=== PATIENT | female | born 1945 | race Caucasian/White ===

== ENCOUNTER 2016-04-03 14:30 | Outpatient (CLI) | payer SELFPAY | END 2016-04-03 14:31 | disposition home or self-care (01) | DX: Z76.89 Persons encountering health services in other specified circumstances (principal) ==

== ENCOUNTER 2016-05-11 14:48 | Outpatient (CLI) | payer MEDICARE ==
[2016-05-11] MEDS ORDERED: IOPAMIDOL-300 100 ML VIAL IVP ONE (17:31)
[2016-05-11] MEDS ORDERED: IOPAMIDOL-300 50 ML VIAL PO ONE (17:31)
== END 2016-05-11 14:49 | disposition home or self-care (01) ==
DX: C34.31 Malignant neoplasm of lower lobe, right bronchus or lung (principal); Z90.49 Acquired absence of other specified parts of digestive tract
CPT/HCPCS: 36415; 71260; 74177; 82565; Q9967

== ENCOUNTER 2016-05-25 06:24 | Inpatient (IN) | payer MEDICARE ==
[2016-05-25] MEDS ORDERED: LACTATED RINGERS 1,000 ML IV ONE ×3 (06:57→12:20)
[2016-05-25] MEDS ORDERED: SCOPOLAMINE PATCH TOP ONE (07:29)
[2016-05-25] MEDS ORDERED: GLYCOPYRROLATE 1 MG/5 ML VIAL IVP ONE (08:30)
[2016-05-25] MEDS ORDERED: fentaNYL 100 MCG/2 ML VIAL IVP ONE (08:30)
[2016-05-25] MEDS ORDERED: ROCURONIUM 50 MG/5 ML VIAL IVP ONE (08:30)
[2016-05-25] MEDS ORDERED: PROPOFOL 200 MG/20 ML VIAL IVP ONE (08:30)
[2016-05-25] MEDS ORDERED: LIDOCAINE-MPF 2% 5 ML VIAL IM ONE (08:30)
[2016-05-25] MEDS ORDERED: NEOSTIGMINE 1 MG/1 ML 10 ML MDV IVP ONE (08:30)
[2016-05-25] MEDS ORDERED: ONDANSETRON 4 MG/2 ML VIAL IVP ONE (08:30)
[2016-05-25] MEDS ORDERED: DEXAMETHASONE 4 MG/ML VIAL IVP ONE (08:30)
[2016-05-25] MEDS ORDERED: ACETAMINOPHEN 1,000 MG/100 ML VIAL IV ONE (08:30)
[2016-05-25] MEDS ORDERED: MIDAZOLAM 2 MG/2 ML VIAL IVP ONE (08:30)
[2016-05-25] MEDS ORDERED: SUCCINYLCHOLINE 200 MG/10 ML VIAL IVP ONE (08:30)
[2016-05-25] MEDS ORDERED: SODIUM CHLORIDE FLUSH 0.9% 10 ML SYRINGE IVP PRN (11:53)
[2016-05-25] MEDS ORDERED: ACETAMINOPHEN 1,000 MG/100 ML 100 ML IV PRN (11:53)
[2016-05-25] MEDS ORDERED: FORMOTEROL FUMARATE NEB 20 MCG/2 ML INH SCH ×3 (12:00→19:00)
[2016-05-25] MEDS ORDERED: LACTATED RINGERS 1,000 ML IV SCH (12:00)
[2016-05-25] MEDS ORDERED: ALBUTEROL NEB 2.5 MG/3 ML INH PRN (12:09)
[2016-05-25] MEDS ORDERED: diphenhydrAMINE INJ 50 MG/ML VIAL IVP PRN (12:12)
[2016-05-25] MEDS ORDERED: ONDANSETRON 4 MG/2 ML VIAL IVP PRN ×2 (12:12→21:18)
[2016-05-25] MEDS ORDERED: NALBUPHINE 20 MG/ML AMP IVP PRN ×3 (12:12→21:18)
[2016-05-25] MEDS ORDERED: SUFENTA/BUPIV 0.4 MCG/0.0625% 150 ML EP PRN ×2 (12:12→21:11)
[2016-05-25] MEDS ORDERED: diphenhydrAMINE INJ 50 MG/ML VIAL IV PRN ×2 (12:17→21:18)
[2016-05-25] MEDS: ePHEDrine 50 MG/ML VIAL IVP ONE ×3 (12:20→12:57)
[2016-05-25] MEDS ORDERED: SUFENTA/BUPIV 0.4 MCG/0.0625% 150 ML EP ONE (14:45)
[2016-05-25] MEDS: SUFENTA/BUPIV 0.4 MCG/0.0625% 150 ML EP PRN ×4 (15:19→20:18)
[2016-05-25] MEDS: ONDANSETRON 4 MG/2 ML VIAL IVP PRN (15:26)
[2016-05-25] MEDS: IPRATROPIUM/ALBUTEROL 3 ML NEB INH SCH ×2 (15:27→18:56)
[2016-05-25] MEDS: POTASSIUM CHLORIDE INJ 40 MEQ in SODIUM CHLORIDE 0.9% 1,000 ML IV SCH (17:19)
[2016-05-25] MEDS: SODIUM CHLORIDE FLUSH 0.9% 10 ML SYRINGE IVP SCH ×2 (17:22→22:23)
[2016-05-25] MEDS ORDERED: BUDESONIDE 0.5 MG/2 ML NEB INH SCH (19:00)
[2016-05-25] MEDS ORDERED: INSULIN ASPART 300 UNIT/3 ML PEN SUBQ STA (20:48)
[2016-05-25] MEDS ORDERED: ePHEDrine 50 MG/ML AMP IVP PRN (21:14)
[2016-05-25] MEDS ORDERED: METOCLOPRAMIDE 10 MG/2 ML VIAL IVP PRN (21:18)
[2016-05-26] MEDS ORDERED: FAMOTIDINE 20 MG in SODIUM CHLORIDE 0.9% 50 ML IV STA (02:21)
[2016-05-26] MEDS ORDERED: FAMOTIDINE 20 MG/50 ML 50 ML IV ONE (02:52)
[2016-05-26] MEDS: POTASSIUM CHLORIDE INJ 40 MEQ in SODIUM CHLORIDE 0.9% 1,000 ML IV SCH ×2 (02:53→14:09)
[2016-05-26] MEDS: PANTOPRAZOLE 40 MG VIAL IVP SCH (06:40)
[2016-05-26] MEDS: SODIUM CHLORIDE FLUSH 0.9% 10 ML SYRINGE IVP SCH ×3 (06:40→21:27)
[2016-05-26] MEDS ORDERED: DEXTROSE 5% 1,000 ML IV PRN (07:48)
[2016-05-26] MEDS ORDERED: DEXTROSE GEL 37.5 GM TUBE PO PRN (07:48)
[2016-05-26] MEDS ORDERED: GLUCAGON 1 MG/ML VIAL SUBQ PRN (07:48)
[2016-05-26] MEDS ORDERED: DEXTROSE 50% ABBOJECT 25 GM/50 ML SYRINGE IVP PRN (07:48)
[2016-05-26] MEDS: diltiaZEM CD 120 MG CAPSULE PO SCH (09:17)
[2016-05-26] MEDS: IPRATROPIUM/ALBUTEROL 3 ML NEB INH SCH ×4 (09:40→20:50)
[2016-05-26] MEDS: DOCUSATE SODIUM 100 MG CAPSULE PO SCH ×2 (14:22→21:26)
[2016-05-26] MEDS ORDERED: ACETAMINOPHEN 325 MG TABLET PO PRN (14:57)
[2016-05-26] MEDS: ONDANSETRON 4 MG/2 ML VIAL IVP PRN (15:15)
[2016-05-26] MEDS: D5.45NS W/20 MEQ KCL 1,000 ML IV SCH (19:43)
[2016-05-27] MEDS: HYDROmorphone 1 MG/ML SYRINGE IVP PRN ×7 (06:14→23:57)
[2016-05-27] MEDS: PANTOPRAZOLE 40 MG VIAL IVP SCH (06:19)
[2016-05-27] MEDS: DOCUSATE SODIUM 100 MG CAPSULE PO SCH ×3 (06:20→21:20)
[2016-05-27] MEDS: IPRATROPIUM/ALBUTEROL 3 ML NEB INH SCH ×4 (06:20→18:24)
[2016-05-27] MEDS: SODIUM CHLORIDE FLUSH 0.9% 10 ML SYRINGE IVP SCH ×3 (07:01→21:21)
[2016-05-27] MEDS: D5.45NS W/20 MEQ KCL 1,000 ML IV SCH ×2 (08:55→21:20)
[2016-05-27] MEDS: diltiaZEM CD 120 MG CAPSULE PO SCH (09:15)
[2016-05-27] MEDS ORDERED: LORazepam 2 MG/ML SYRINGE IVP PRN (11:56)
[2016-05-27] MEDS ORDERED: ALBUTEROL NEB 2.5 MG/3 ML INH PRN (11:58)
[2016-05-27] MEDS ORDERED: IPRATROPIUM/ALBUTEROL 3 ML NEB INH SCH (14:00)
[2016-05-27] MEDS: BUDESONIDE 0.5 MG/2 ML NEB INH SCH (18:24)
[2016-05-28] MEDS: HYDROmorphone 1 MG/ML SYRINGE IVP PRN ×3 (02:57→08:14)
[2016-05-28] MEDS: PANTOPRAZOLE 40 MG VIAL IVP SCH (06:04)
[2016-05-28] MEDS: DOCUSATE SODIUM 100 MG CAPSULE PO SCH ×3 (06:04→23:03)
[2016-05-28] MEDS: SODIUM CHLORIDE FLUSH 0.9% 10 ML SYRINGE IVP SCH ×3 (06:05→23:10)
[2016-05-28] MEDS: BUDESONIDE 0.5 MG/2 ML NEB INH SCH ×2 (07:25→16:51)
[2016-05-28] MEDS: IPRATROPIUM/ALBUTEROL 3 ML NEB INH SCH ×4 (07:26→17:17)
[2016-05-28] MEDS: diltiaZEM CD 120 MG CAPSULE PO SCH (08:16)
[2016-05-28] MEDS: D5.45NS W/20 MEQ KCL 1,000 ML IV SCH ×2 (08:17→23:03)
[2016-05-28] MEDS: oxyCOD/ACETAMIN 5 MG/325 MG TABLET PO PRN ×4 (09:41→23:02)
[2016-05-28] MEDS ORDERED: DEXTROSE 5% 1,000 ML IV PRN (09:46)
[2016-05-28] MEDS ORDERED: DEXTROSE 50% ABBOJECT 25 GM/50 ML SYRINGE IVP PRN (09:46)
[2016-05-28] MEDS ORDERED: DEXTROSE GEL 37.5 GM TUBE PO PRN (09:46)
[2016-05-28] MEDS ORDERED: GLUCAGON 1 MG/ML VIAL SUBQ PRN (09:46)
[2016-05-29] MEDS: oxyCOD/ACETAMIN 5 MG/325 MG TABLET PO PRN ×2 (04:12→08:55)
[2016-05-29] MEDS: SODIUM CHLORIDE FLUSH 0.9% 10 ML SYRINGE IVP SCH ×2 (06:36→09:00)
[2016-05-29] MEDS: PANTOPRAZOLE 40 MG VIAL IVP SCH (06:36)
[2016-05-29] MEDS: DOCUSATE SODIUM 100 MG CAPSULE PO SCH ×2 (06:36→08:54)
[2016-05-29] MEDS: diltiaZEM CD 120 MG CAPSULE PO SCH (08:54)
[2016-05-29] MEDS: BUDESONIDE 0.5 MG/2 ML NEB INH SCH (09:25)
[2016-05-29] MEDS: IPRATROPIUM/ALBUTEROL 3 ML NEB INH SCH (09:25)
== END 2016-05-29 11:30 | disposition home or self-care (01) | DRG 330 ==
PROC: 0DBF4ZZ Excision of Right Large Intestine, Percutaneous Endoscopic Approach (ICD-10-PCS; principal; 2016-05-25 07:30)
DX: C78.5 Secondary malignant neoplasm of large intestine and rectum (principal); C34.31 Malignant neoplasm of lower lobe, right bronchus or lung; I95.81 Postprocedural hypotension; J44.9 Chronic obstructive pulmonary disease, unspecified; F17.210 Nicotine dependence, cigarettes, uncomplicated; I48.91 Unspecified atrial fibrillation; F32.9 Major depressive disorder, single episode, unspecified; F41.0 Panic disorder [episodic paroxysmal anxiety]; F40.240 Claustrophobia; Y83.8 Other surgical procedures as the cause of abnormal reaction of the patient, or of later complication, without mention of misadventure at the time of the procedure; Z99.81 Dependence on supplemental oxygen; Z92.3 Personal history of irradiation; Z87.11 Personal history of peptic ulcer disease; Z79.84 Long term (current) use of oral hypoglycemic drugs; Z79.51 Long term (current) use of inhaled steroids; Z79.899 Other long term (current) drug therapy; Z90.49 Acquired absence of other specified parts of digestive tract

== ENCOUNTER 2016-10-24 13:06 | Outpatient (CLI) | payer MEDICARE ==
--- NOTE | 2016-10-25 09:36 | CT Preliminary Report ---
Exam: CT Chest W/O IMPRESSION: 1. Significantly improved aeration with reexpansion of the right lower lobe. Minimal residual atelect atic changes persist in the posterior medial aspect of the right lower lobe. 2. A central obstructing mass in the right hilum cannot be entirely excluded on this examination but no definite mass is identified. 3. No lymphadenopathy. 4. Masslike density in the lateral aspect of the left breast is redemonstrated and similar to the elver or examination. Correlation with breast imaging is again recommended. [facility] SITE ID: [id number]
--- NOTE | 2016-10-25 09:39 | CT Report ---
EXAM: CT CHEST EXAM DATE: 10/24/2016 02:44 PM. CLINICAL HISTORY: MALIGNANT NEOPLASM OF LOWER LOBE RIGHT BRONCHUS. COMPARISONS: Chest CT dated 10/30/2015. TECHNIQUE: Routine helical CT imaging was performed through the chest. IV contrast: None. Reconstruct ions: Coronal and sagittal. In accordance with CT protocol optimization, one or more of the following dose reduction techniques w ere utilized for this exam: automated exposure control, adjustment of mA and/or KV based on patient s ize, or use of iterative reconstructive technique. FINDINGS: Lungs/Pleura: Significantly improved aeration in the right lung base with minimal residual atelectati c changes posterior medially (series 4, image 30). The presence of an obstructing central mass cannot be entirely excluded within the hilum but no definite mass is identified. No new focal consolidation , pleural effusion or suspicious pulmonary nodules or masses. Mediastinum: Normal. No adenopathy or masses. The heart and great vessels are normal. Bones: Unremarkable. Visualized Abdomen: Unremarkable. Other: Masslike density in the lateral aspect of the left breast is redemonstrated and similar. IMPRESSION: 1. Significantly improved aeration with reexpansion of the right lower lobe. Minimal residual atelect atic changes persist in the posterior medial aspect of the right lower lobe. 2. A central obstructing mass in the right hilum cannot be entirely excluded on this examination but no definite mass is identified. 3. No lymphadenopathy. 4. Masslike density in the lateral aspect of the left breast is redemonstrated and similar to the elver or examination. Correlation with breast imaging is again recommended. [facility] Referring Provider Line: [phone] SITE ID: [id number]
== END 2016-10-24 13:07 | disposition home or self-care (01) ==
LOC: DI 13:06
PROVIDERS: ATTEND Specialist
DX: R91.8 Other nonspecific abnormal finding of lung field (principal)
CPT/HCPCS: 71250

== ENCOUNTER 2016-12-30 07:40 | Observation (INO) | payer MEDICARE ==
[2016-12-30] MEDS ORDERED: IPRATROPIUM/ALBUTEROL 3 ML NEB INH STA ×2 (07:47→10:31)
[2016-12-30] MEDS ORDERED: SODIUM CHLORIDE 0.9% 1,000 ML IV ONE (07:56)
[2016-12-30] MEDS ORDERED: cefTRIAXone 1 GM in SODIUM CHLORIDE 0.9% MINIBAG 100 ML IV STA (07:56)
[2016-12-30] MEDS ORDERED: DEXAMETHASONE 10 MG/ML VIAL IVP STA (07:56)
--- NOTE | 2016-12-30 08:01 | ED Physician Documentation ---
PD HPI DYSPNEA - Stated complaint Stated Complaint: DIFF BREATHING/COLD - Chief complaint Chief Complaint: Resp - History obtained from History obtained from: Patient - History of Present Illness Timing - onset: How many days ago (3) Timing - onset during: Rest Timing - duration: Days (3) Timing - details: Gradual onset, Still present Inciting event(s): URI Improved by: Inhaler/neb Worsened by: Exertion, Coughing Associated symptoms: Cough, Wheezing Similar symptoms before: Diagnosis (COPD) Recently seen: Other (getting routine care for lung and colon cancer.) - Additional information Additional information: 71-year-old female with a history of colon cancer and lung cancer has a history of COPD as well. Over the past 3 days the. Patient has developed congestion and increasing dyspnea. She has developed a cough yesterday she has not had a fever she has had nasal congestion ear congestion and tight wheezes. She was not able to break the wheezing with her Ventolin inhaler. She has had prior admission for COPD and she states that she is not as bad as she was when she was last admitted in 2012. She is in remission from both lung and colon cancer. Review of Systems Constitutional: denies: Fever, Chills Eyes: denies: Decreased vision Ears: reports: Loss of hearing, Ear pain Nose: reports: Rhinorrhea / runny nose, Congestion Throat: denies: Sore throat Cardiac: denies: Chest pain / pressure, Palpitations Respiratory: reports: Dyspnea, Cough, Wheezing GI: reports: Other (decreased appetite). denies: Abdominal Pain, Nausea, Vomiting : denies: Dysuria, Frequency Skin: denies: Rash Musculoskeletal: denies: Neck pain, Back pain, Extremity pain Neurologic: denies: Generalized weakness, Focal weakness, Numbness PD PAST MEDICAL HISTORY - Past Medical History Cardiovascular: Atrial fibrillation Respiratory: Asthma, COPD, Shortness of breath, Other Neuro: Headache/migraine Endocrine/Autoimmune: None GI: Ulcers, Diverticulitis, Other : None HEENT: Other Psych: Depression, Anxiety, Claustrophobia Musculoskeletal: Osteoarthritis, Osteoporosis Derm: None - Past Surgical History Past Surgical History: Yes General: Cholecystectomy, 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 HEENT: Cataracts Derm: Skin cancer surgery - Present Medications Home Medications: Ambulatory Orders Medication Instructions Recorded Confirmed Fluticasone/Salmeterol 250/50 1 puffs INH BID 09/20/12 12/30/16 [Advair 250 Mcg/50 Mcg] Tiotropium [place] [Spiriva] 18 mcg INH DAILY 12/28/14 12/30/16 Albuterol [Ventolin Hfa] 2 puffs INH Q4H PRN 12/24/15 12/30/16 Cetirizine [ZyrTEC] 10 mg PO DAILY 12/24/15 12/30/16 Cyanocobalamin (Vitamin B-12) 1,000 mcg IM Q30D 12/24/15 12/30/16 [Cyanocobalamin Injection] Diltiazem HCl [Diltiazem 24Hr ER] 120 mg PO DAILY #30 cap.er.24h 01/23/16 Cholecalciferol (Vitamin D3) 2,000 units PO DAILY 05/25/16 12/30/16 [Vitamin D3] [place]-3 Acid Ethyl Esters [Lovaza] 1 gm PO DAILY 05/25/16 12/30/16 - Allergies Allergies/Adverse Reactions: Allergies Allergy/AdvReac Type Severity Reaction Status Date / Time albuterol sulfate * Allergy Severe Respiratory Verified 05/22/16 10:08 [From ProAir HFA] iodine Allergy Severe Respiratory Verified 05/22/16 10:08 Penicillins Allergy Intermediate Nausea Verified 05/22/16 10:08 latex AdvReac Severe Rash Verified 05/22/16 10:09 morphine AdvReac Severe Headache Verified 05/22/16 10:08 - Social History Does the pt smoke?: Yes Smoking Status: Current every day smoker Does the pt drink ETOH?: No Does the pt have substance abuse?: No - Immunizations Immunizations are current?: Yes - POLST Patient has POLST: No PD ED PE NORMAL - Vitals Vital signs reviewed: Yes (tachy tachypneic and hypoxic) - General General: Well developed/nourished - HEENT HEENT: Atraumatic, PERRL, EOMI, Other (both TM's are inflamed the right is retracted with rounded landmarks and the left is inflamed with indistinct landmarks. ) - Neck Neck: Supple, no meningeal sign, No bony TTP - Cardiac Cardiac: RRR, No murmur - Respiratory Respiratory: Other (respiratory distress with tachypnea and audible wheezes. Bilateral fine wheezes throughout., ) - Abdomen Abdomen: Soft, Non tender - Back Back: No CVA TTP, No spinal TTP - Derm Derm: Normal color, Warm and dry, No rash - Extremities Extremities: No deformity, No edema - Neuro Neuro: No motor deficit, No sensory deficit - Psych Psych: Normal mood, Normal affect Results - Vitals Vitals: Vital Signs - 24 hr 12/30/16 12/30/16 12/30/16 07:45 08:01 08:32 Temperature 36.6 C Heart Rate 107 H 89 90 Respiratory 2 L 23 18 Rate Blood Pressure 151/87 H 125/65 O2 Saturation 83 L 94 12/30/16 12/30/16 12/30/16 08:58 09:59 10:24 Temperature 36.8 C Heart Rate 87 101 H 101 H Respiratory 22 18 18 Rate Blood Pressure 125/73 126/68 O2 Saturation 83 L 86 L 12/30/16 12/30/16 12/30/16 10:25 10:42 11:44 Temperature 36.5 C Heart Rate 99 108 H Respiratory 21 22 Rate Blood Pressure 127/61 O2 Saturation 88 L 82 L 12/30/16 12:36 Temperature 36.9 C Heart Rate 103 H Respiratory 18 Rate Blood Pressure 118/62 O2 Saturation 95 Oxygen O2 Source Room air Oxygen Flow Rate 3 - EKG (time done) 0749 Rate: Rate (enter#) (103) Rhythm: Sinus tachycardia Ischemia: Normal ST segments Compare to prior EKG: Changed from prior EKG (SPT 05-25-16 rate has increased) Computer interpretation: Agree with computer - Labs Labs: Laboratory Tests 12/30/16 12/30/16 12/30/16 07:57 07:57 07:57 WBC 4.9 RBC 4.60 Hgb 13.2 Hct 40.1 MCV 87.1 MCH 28.8 MCHC 33.0 RDW 14.1 Plt Count 251 MPV 7.0 L Neut # 3.1 Lymph # 0.8 L [place] # 0.7 Eos # 0.3 Baso # 0.1 Absolute Nucleated RBC 0.00 Nucleated RBC % 0.0 Sodium 135 Potassium 4.4 Chloride 94 L Carbon Dioxide 30 Anion Gap 11.0 BUN 8 Creatinine 0.5 Estimated GFR (MDRD) 121 Glucose 97 Calcium 9.4 Total Bilirubin 0.4 AST 22 ALT 18 Alkaline Phosphatase 75 Troponin I < 0.04 Total Protein 7.2 Albumin 4.2 Globulin 3.0 Albumin/Globulin Ratio 1.4 Lipase 24 - Rads (name of study) 2 view chest Radiology: Prelim report reviewed (Impression: 1. COPD. 2. Mild left costophrenic angle opacity could be related to airspace disease or atelectasis.) , EMP read indepedently, See rad report PD MEDICAL DECISION MAKING - ED course Complexity details: reviewed old records, reviewed results, re-evaluated patient , considered differential, d/w patient, d/w family ED course: 71-year-old female with history of COPD has acute exacerbation and otitis on examination. She is given a DuoNeb treatment and intravenous dexamethasone and Rocephin. She is given a liter of saline as well. She has improvement with the DuoNeb but remains hypoxic. She is refusing hospitalization initially. She is given a second treatment of albuterol and a third treatment with a DuoNeb and she feels much improved but continues to have hypoxia. When she ambulates to the bathroom she returns with an oxygen saturation in the low 70s. After repeated plea's with the patient she has agreed to stay in the hospital. Departure - Departure Disposition: [address] [facility] Clinical Impression: Moderate chronic obstructive pulmonary disease Condition: Fair Discharge Date/Time: 12/30/16 14:04
[2016-12-30] MEDS ORDERED: IPRATROPIUM/ALBUTEROL 3 ML NEB INH ONE ×2 (08:02→10:44)
[2016-12-30 08:09] LABS: BASOPHILS # (AUTO) 0.1 10^3/uL (0.0-0.1); BASOPHILS % (AUTO) 1.3 %; EOSINOPHILS # (AUTO) 0.3 10^3/uL (0.0-0.7); EOSINOPHILS % (AUTO) 5.4 %; HCT - HEMATOCRIT 40.1 % (37.0-47.0); HGB - HEMOGLOBIN 13.2 g/dL (12.0-16.0); LYMPHOCYTES # (AUTO) 0.8 10^3/uL (1.5-3.5); MEAN CORPUSCULAR HEMOGLOBIN 28.8 pg (27.0-31.0); MEAN CORPUSCULAR VOLUME 87.1 fL (81.0-99.0); MONOCYTES # (AUTO) 0.7 10^3/uL (0.0-1.0); MONOCYTES % (AUTO) 13.4 %; NEUTROPHILS # (AUTO) 3.1 10^3/uL (1.5-6.6); NEUTROPHILS % (AUTO) 62.9 %; RED CELL DISTRIBUTION WIDTH 14.1 % (12.0-15.0); UNCORRECTED WHITE BLOOD COUNT 4.9 x10^3/uL; WHITE BLOOD COUNT 4.9 x10^3/uL (4.8-10.8)
[2016-12-30 08:19] LABS: ALBUMIN/GLOBULIN RATIO 1.4 (1.0-2.2); BILIRUBIN,TOTAL 0.4 mg/dL (0.2-1.0); CALCIUM 9.4 mg/dL (8.5-10.3); CREATININE 0.5 mg/dL (0.4-1.0); POTASSIUM 4.4 mmol/L (3.5-5.0); TOTAL PROTEIN 7.2 g/dL (6.7-8.2)
[2016-12-30] MEDS ORDERED: DEXAMETHASONE 10 MG/ML VIAL ONE (08:22)
[2016-12-30] MEDS ORDERED: cefTRIAXone 1 GM VIAL ONE (08:22)
[2016-12-30] MEDS ORDERED: ALBUTEROL NEB 2.5 MG/3 ML INH ONE (08:49)
[2016-12-30] MEDS ORDERED: ALBUTEROL NEB 2.5 MG/3 ML INH STA (08:50)
--- NOTE | 2016-12-30 09:01 | XRAY Preliminary Report ---
Exam: XR CHEST 2 VIEW PA/LAT IMPRESSION: 1. COPD. 2. Mild left costophrenic angle opacity could be related to airspace disease or atelectasis. [facility] SITE ID: [id number]
--- NOTE | 2016-12-30 09:04 | XRAY Report ---
EXAM: CHEST RADIOGRAPHY EXAM DATE: 12/30/2016 08:08 AM. CLINICAL HISTORY: Cough and dyspnea. COMPARISON: Chest x-ray 05/25/2016. TECHNIQUE: 2 views. FINDINGS: Lungs/Pleura: Prominent lung volumes with flattening of diaphragm. No pneumothorax or pleural effusion. Mild asymmetric left costophrenic angle opacity. Mediastinum: Heart and mediastinal contours are unremarkable. Other: Diffuse osteopenia. Mild midthoracic vertebral compression fracture has developed since 2016. IMPRESSION: 1. COPD. 2. Mild left costophrenic angle opacity could be related to airspace disease or atelectasis. [facility] Referring Provider Line: [phone] SITE ID: [id number]
[2016-12-30] MEDS ORDERED: SODIUM CHLORIDE FLUSH 0.9% 10 ML SYRINGE IVP PRN (13:21)
[2016-12-30] MEDS ORDERED: ONDANSETRON 4 MG/2 ML VIAL IVP PRN (13:21)
[2016-12-30] MEDS ORDERED: ACETAMINOPHEN 325 MG TABLET PO PRN (13:21)
[2016-12-30] MEDS: IPRATROPIUM/ALBUTEROL 3 ML NEB INH PRN ×2 (15:23→20:08)
--- NOTE | 2016-12-30 15:23 | HISTORY & PHYSICAL EXAMINATION ---
DATE OF ADMISSION: 12/30/2016 TIME: 1:33 p.m. CODE STATUS: DO NOT RESUSCITATE. PRIMARY CARE PHYSICIAN: NIKHIL Jones EXAM LIMITATION: None. RECORDS REVIEWED: Yes. SOURCE OF INFORMATION: Patient. ADVANCE DIRECTIVE: THE PATIENT HAS NO ADVANCED DIRECTIVE. CHIEF COMPLAINT: Shortness of breath. PRESENT HISTORY: The patient is a 71-year-old white female who began having shortness of breath at 8 a.m. that got progressively worse, bringing her into the ER. She also had wheezing earlier this morni ng and has a nonproductive cough. DRUG ALLERGIES: PROAIR. HOME MEDICATIONS 1. Albuterol 2 puffs every 4 hours. 2. Cholecalciferol 2000 units p.o. every day. 3. Cyanocobalamin 1000 mcg IM every 30 days. 4. Diltiazem 120 mg 1 tab p.o. every day. 5. Advair [place] 1 puff twice a day. 7. [place] 3 acid ethyl esters 1 g p.o. every day. 8. Spiriva 18 mcg 1 puff every day. 9. Aspirin p.o. every day. PAST MEDICAL HISTORY: Paroxysmal atrial fibrillation, COPD, colon cancer that was treated with a righ t hemicolectomy, and lung cancer that was treated with radiation treatment. FAMILY HISTORY: Sister, colon cancer. SOCIAL HISTORY: She is single. She has 2 children. She smoked half a pack per day for 50 years, quit 1 year ago. She does not drink alcohol, uses no recreational drugs. 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 She lives at home by herself. REVIEW OF SYSTEMS RESPIRATORY: Has a nonproductive cough and shortness of breath. HEART: No palpitations. No chest pains. ABDOMEN: No constipation, no diarrhea, no nausea, no vomiting, no abdominal pain. URINARY SYSTEMS: No frequency, no burning urine. HEAD: Has frontal headache. EYES: No blurred vision. EARS: No tinnitus or ear pain. NOSE: No runny nose. THROAT: No pain or redness. MUSCULOSKELETAL: No proximal muscle weakness or lower back pain. JOINTS: No joint pain. NEUROLOGICAL: No dementia. No aphasia. No limb weakness. Weakness and fatigue is yes, and fever is no . PHYSICAL EXAMINATION VITAL SIGNS: Temperature of 36.9, a pulse of 103, a respiratory rate of 18, a blood pressure of 118/6 2, O2 saturation of 95% on room air. HEENT: Her head is atraumatic, normocephalic. Eyes are PERRLA, EOMI. NECK: Supple. No JVD, no bruits, no thyroid enlargement. No adenopathy. HEART: Tachycardia. LUNGS: Rhonchi. ABDOMEN: Positive for bowel sounds, soft, nontender. No rebound. No guarding. EXTREMITIES: Warm, no edema, +2 pedal pulses. She has 5/5 muscle strength in upper and lower extremit ies. NEUROLOGIC: She is oriented x3, follows commands, moves all 4 extremities. Cranial nerves 2-12 are in tact. LABORATORY DATA: On labs, her sodium is 135, potassium is 4.4, chloride 94, bicarbonate is 30, BUN is 8, creatinine is 0.5, glucose is 97. White blood cells are 4.9, hemoglobin is 13.2, hematocrit is 40 .1; platelets are 251,000. Glomerular filtration rate is 121. AST is 22. ALT is 18. Alkaline phosphat ase is 75. Troponin is less than 0.04. Lipase is 24. EKG shows sinus tachycardia. ASSESSMENT AND PLAN 1. Chronic obstructive pulmonary disease exacerbation that will be treated with IV Solu-Medrol, DuoN ebs, and fluticasone/salmeterol. 2. Suspected upper respiratory infection will be treated with Rocephin. 3. Cholecalciferol will be given to prevent osteoporosis. 4. Paroxysmal atrial fibrillation will be treated with Cardizem. 5. [place] 3 acid ethyl zhanna will be given for hyperlipidemia. 6. She will be placed in observation. 7. DVT prophylaxis will be subcutaneous Lovenox and SCDs. 8. She will receive IV Protonix to prevent stress ulcers. Anticipated length of stay is 2 days. JOB #: [id number] EXT JOB #:[id number]
[2016-12-30] MEDS: SODIUM CHLORIDE FLUSH 0.9% 10 ML SYRINGE IVP SCH ×2 (15:37→20:48)
[2016-12-30] MEDS: BUDESONIDE 0.5 MG/2 ML NEB INH SCH (20:08)
[2016-12-30] MEDS: FORMOTEROL FUMARATE NEB 20 MCG/2 ML INH SCH (20:08)
[2016-12-30] MEDS: methylPREDNISolone SUCCINATE 40 MG/ML VIAL IVP SCH (20:48)
[2016-12-30] MEDS ORDERED: methylPREDNISolone SUCCINATE 40 MG in SODIUM CHLORIDE 0.9% 250 ML IV SCH (21:00)
[2016-12-31 06:01] LABS: BASOPHILS % (AUTO) 0.1 %; HCT - HEMATOCRIT 37.8 % (37.0-47.0); HGB - HEMOGLOBIN 12.5 g/dL (12.0-16.0); LYMPHOCYTES # (AUTO) 0.5 10^3/uL (1.5-3.5); LYMPHOCYTES % (AUTO) 10.2 %; MEAN CORPUSCULAR HGB CONC 33.1 g/dL (32.0-36.0); MEAN CORPUSCULAR VOLUME 87.8 fL (81.0-99.0); MEAN PLATELET VOLUME 7.2 fL (7.9-10.8); MONOCYTES # (AUTO) 0.3 10^3/uL (0.0-1.0); MONOCYTES % (AUTO) 7.2 %; NEUTROPHILS # (AUTO) 3.7 10^3/uL (1.5-6.6); NEUTROPHILS % (AUTO) 82.5 %; UNCORRECTED WHITE BLOOD COUNT 4.5 x10^3/uL; WHITE BLOOD COUNT 4.5 x10^3/uL (4.8-10.8)
[2016-12-31 06:03] LABS: CALCIUM 8.8 mg/dL (8.5-10.3); CREATININE 0.4 mg/dL (0.4-1.0); POTASSIUM 4.1 mmol/L (3.5-5.0)
[2016-12-31] MEDS ORDERED: PANTOPRAZOLE 40 MG VIAL IVP SCH (07:00)
[2016-12-31] MEDS: SODIUM CHLORIDE FLUSH 0.9% 10 ML SYRINGE IVP SCH (08:43)
[2016-12-31] MEDS ORDERED: OMEGA-3 ACID ETHYL ESTERS 1 GM CAPSULE PO SCH (09:00)
[2016-12-31] MEDS ORDERED: CHOLECALCIFEROL 1,000 UNIT TABLET PO SCH (09:00)
[2016-12-31] MEDS ORDERED: POLYETHYLENE GLYCOL 3350 17 GM PACKET PO SCH (09:00)
[2016-12-31] MEDS ORDERED: ENOXAPARIN 40 MG/0.4 ML SYRINGE SUBQ SCH (09:00)
[2016-12-31] MEDS ORDERED: diltiaZEM CD 120 MG CAPSULE PO SCH (09:00)
[2016-12-31] MEDS ORDERED: cefTRIAXone 1 GM in SODIUM CHLORIDE 0.9% MINIBAG 100 ML IV SCH (09:00)
[2016-12-31] MEDS: FORMOTEROL FUMARATE NEB 20 MCG/2 ML INH SCH (09:21)
[2016-12-31] MEDS: IPRATROPIUM/ALBUTEROL 3 ML NEB INH PRN (09:22)
[2016-12-31] MEDS: BUDESONIDE 0.5 MG/2 ML NEB INH SCH (09:22)
[2016-12-31] MEDS ORDERED: SODIUM CHLORIDE 0.9% 100ML 100 ML IV ONE (10:19)
[2016-12-31] MEDS: methylPREDNISolone SUCCINATE 40 MG/ML VIAL IVP SCH (10:20)
--- NOTE | 2016-12-31 11:05 | Discharge Plan ---
Discharge Plan Disposition: 01 Home, Self Care Condition: Stable Prescriptions: Albuterol Sulf [Ventolin Hfa Inhaler] 1 - 2 puffs INH Q4HR PRN #1 inhaler PRN Reason: Shortness Of Air/Wheezing Erythromycin [place] [Erythromycin] 500 mg PO QID #20 tablet Prednisone 5 mg PO [id number] #20 tablet Diet: Cardiac Activity Restrictions: Activity as Tolerated Shower Restrictions: No Driving Restrictions: No Weight Bearing: Partial Weight Additional Instructions or Follow Up instructions: The patient is to follow-up with Alma Rosa Mansfield early next week. No Smoking: If you smoke, Please STOP! Call for help. Follow-up with: Alma Rosa Mansfield PA-C [Primary Care Provider] -
--- NOTE | 2016-12-31 11:35 | DISCHARGE SUMMARY ---
Discharge Summary Admit Date: 12/30/16 Condition at Discharge: Stable Discharge Disposition: 01 Home, Self Care - DIAGNOSES Admission Diagnoses: COPD exacerbation and Upper Respiratory Infection Discharge Diagnoses with Status of Each Condition: COPD exacerbation- improved, Upper Respiratory Infection-improved - HPI History of Present Illness: Guerline Bland, a 71 yr white female, was admitted with a COPD exacerbation and upper respiratory infection. Her COPD exacerbation was treated with Duonebs, fluticasone/salmeterol and IV solumedrol. Her upper respiratory infection was treated with IV Rocephin. She received cholecalciferol to prevent osteoporosis. Her paroxysmal AF was treated with cardizem. Her hyperlipidemia was treated with [place] 3 acid ethyl zhanna. She received SQ lovenox for DVT prevention. She received IV protonix to prevent stress ulcer. She improved and was discharged to home.She received prescriptions for : Erythromycin 500 mg 1 tab po 4x/day (#20). Albuterol 1 to 2 puff inhalations every 4 hours (1 canister). Prednisone 5 mg 4 tab po on days on days 1 and 2 and then 5 mg 2 tab po on days 3 and 4 and then 5 mg 1 tab po on days 5 and 6, and then 5 mg 1/2 tab po on days 7,8, 9, and 10. The patient will follow-up with Dr. Alma Rosa Mansfield early next week. - HOSPITAL COURSE Hospital Course: Guerline Bland, a 71 yr white female, was admitted with a COPD exacerbation and upper respiratory infection. Her COPD exacerbation was treated with Duonebs, fluticasone/salmeterol and IV solumedrol. Her upper respiratory infection was treated with IV Rocephin. She received cholecalciferol to prevent osteoporosis. Her paroxysmal AF was treated with cardizem. Her hyperlipidemia was treated with [place] 3 acid ethyl zhanna. She received SQ lovenox for DVT prevention. She received IV protonix to prevent stress ulcer. She improved and was discharged to home.She received prescriptions for : Erythromycin 500 mg 1 tab po 4x/day (#20). Albuterol 1 to 2 puff inhalations every 4 hours (1 canister). Prednisone 5 mg 4 tab po on days on days 1 and 2 and then 5 mg 2 tab po on days 3 and 4 and then 5 mg 1 tab po on days 5 and 6, and then 5 mg 1/2 tab po on days 7,8, 9, and 10. The patient will follow-up with Dr. Alma Rosa Mansfield early next week. - ALLERGIES Allergies/Adverse Reactions: Allergies Allergy/AdvReac Type Severity Reaction Status Date / Time albuterol sulfate * Allergy Severe Respiratory Verified 05/22/16 10:08 [From ProAir HFA] iodine Allergy Severe Respiratory Verified 05/22/16 10:08 Penicillins Allergy Intermediate Nausea Verified 05/22/16 10:08 latex AdvReac Severe Rash Verified 05/22/16 10:09 morphine AdvReac Severe Headache Verified 05/22/16 10:08 - MEDICATIONS Home Medications: Ambulatory Orders Medication Instructions Recorded Confirmed Fluticasone/Salmeterol 250/50 1 puffs INH BID 09/20/12 12/30/16 [Advair 250 Mcg/50 Mcg] Tiotropium [place] [Spiriva] 18 mcg INH DAILY 12/28/14 12/30/16 Albuterol [Ventolin Hfa] 2 puffs INH Q4H PRN 12/24/15 12/30/16 Cetirizine [ZyrTEC] 10 mg PO DAILY 12/24/15 12/30/16 Cyanocobalamin (Vitamin B-12) 1,000 mcg IM Q30D 12/24/15 12/30/16 [Cyanocobalamin Injection] Diltiazem HCl [Diltiazem 24Hr ER] 120 mg PO DAILY #30 cap.er.24h 01/23/16 Cholecalciferol (Vitamin D3) 2,000 units PO DAILY 05/25/16 12/30/16 [Vitamin D3] [place]-3 Acid Ethyl Esters [Lovaza] 1 gm PO DAILY 05/25/16 12/30/16 Albuterol Sulf [Ventolin Hfa 1 - 2 puffs INH Q4HR PRN #1 inhaler 12/31/16 Inhaler] Erythromycin Base [Erythromycin] 500 mg PO QID #20 tablet 12/31/16 Prednisone 5 mg PO [id number] #20 tablet 12/31/16 - PHYSICAL EXAM AT DISCHARGE General Appearance: positive: No acute distress, Alert Eyes Bilateral: positive: Normal inspection, PERRL, EOMI Neck: positive: Nml inspection Respiratory: positive: Chest non-tender, No respiratory distress, Breath sounds nml Cardiovascular: positive: Irregularly irregular Peripheral Pulses: positive: 2+ Abdomen: positive: Non-tender, Nml bowel sounds, No distention Skin: positive: Color nml Extremities: positive: Full ROM Neurologic/Psychiatric: positive: Oriented x3, CN's nml (2-12) - LABS Result Diagrams: 12/31/16 05:26 12/31/16 05:26 - DIAGNOSTIC IMAGING Diagnostic Imaging Results Comments: Chest X-ray- COPD; Mild left costophrenic angle opacity could be related to airspace disease or atelectasis. - FOLLOW UP Follow Up: Dr. Mansfield next week. - TIME SPENT Time Spent in Discharge (Minutes): 60
[2016-12-31 12:07] VITALS: BP 97/63
== END 2016-12-31 12:13 | disposition home or self-care (01) ==
LOC: ED 07:40 → OBS 13:21
DX: J44.1 Chronic obstructive pulmonary disease with (acute) exacerbation (principal); J06.9 Acute upper respiratory infection, unspecified; I48.0 Paroxysmal atrial fibrillation; E78.5 Hyperlipidemia, unspecified; H66.93 Otitis media, unspecified, bilateral; Z79.51 Long term (current) use of inhaled steroids; Z79.82 Long term (current) use of aspirin; Z79.899 Other long term (current) drug therapy; Z85.038 Personal history of other malignant neoplasm of large intestine; Z85.118 Personal history of other malignant neoplasm of bronchus and lung; Z92.3 Personal history of irradiation; Z90.49 Acquired absence of other specified parts of digestive tract; Z87.891 Personal history of nicotine dependence
CPT/HCPCS: 36415; 71020; 80048; 80053; 83690; 84484; 85025; 93005; 94640; 94761; 96361; 96365; 96366; 96375; 96376; 99284; 99285; A9270; G0378; J7613; J7620; J7626

== ENCOUNTER 2017-04-26 14:43 | Outpatient (CLI) | payer MEDICARE ==
[2017-04-26] MEDS ORDERED: IOPAMIDOL-300 50 ML VIAL ONE (15:00)
[2017-04-26] MEDS ORDERED: IOPAMIDOL-300 100 ML VIAL ONE (15:00)
[2017-04-26 15:11] LABS: CREATININE 0.8 mg/dL (0.4-1.0)
--- NOTE | 2017-04-27 12:28 | CT Report ---
DATE OF SERVICE: 04/26/2017 CT CHEST WITH CONTRAST: 04/27/2017. CLINICAL INDICATION: Lung cancer followup. TECHNIQUE: Axial CT images of the chest were obtained with 100 mL Isovue 300 intravenously (patient premedicated for contrast allergy). COMPARISON: 10/24/2016, 05/11/2016, 10/30/2015, 09/11/2015. FINDINGS: The heart and great vessels demonstrate atherosclerotic calcification. There is new extrinsic narrowing of the bronchus intermedius and the right lower lobe main stem bronchus, with complete collapse of the medial segment of the right lower lobe, and a new hypodense nodule in the azygoesophageal recess, measuring 1.9 cm, suspicious for adenopathy. The aerated portions of the lungs demonstrate emphysema. No pulmonary nodule or mass lesion is appreciated in the aerated segments. No effusion or pneumothorax is present. Osseous structures demonstrate degenerative changes. IMPRESSION: NEW 1.9 CM HYPODENSE NODULE IN THE AZYGOESOPHAGEAL RECESS, SUSPICIOUS FOR ADENOPATHY, WITH COMPRESSION OF THE BRONCHUS INTERMEDIUS AND THE RIGHT LOWER LOBE MAIN STEM BRONCHUS, AND COLLAPSE OF THE MEDIAL SEGMENT OF THE RIGHT LOWER LOBE. In accordance with CT protocol optimization, one or more of the following dose reduction techniques were utilized for this exam: automated exposure control, adjustment of mA and/or KV based on patient size, or use of iterative reconstructive technique. TD: 04/27/2017 12:27 MTDD
--- NOTE | 2017-04-27 12:32 | CT Report ---
DATE OF SERVICE: 04/26/2017 CT ABDOMEN WITH CONTRAST: 04/27/2017. CLINICAL INDICATION: Lung cancer. TECHNIQUE: Axial CT images of the abdomen were obtained with 100 mL Isovue 300 intravenously as well as oral contrast (patient premedicated for contrast allergy). COMPARISON: 05/11/2016. FINDINGS: Postoperative changes of cholecystectomy are present. The liver, spleen, pancreas and adrenal glands are unremarkable. The kidneys demonstrate small cortical cysts. No solid renal lesion or hydronephrosis is seen. No bowel dilatation, free gas, or free fluid is appreciated. Osseous structures demonstrate degenerative changes. IMPRESSION: STABLE CHANGES OF CHOLECYSTECTOMY. NO EVIDENCE OF METASTATIC DISEASE IN THE ABDOMEN. In accordance with CT protocol optimization, one or more of the following dose reduction techniques were utilized for this exam: automated exposure control, adjustment of mA and/or KV based on patient size, or use of iterative reconstructive technique. TD: 04/27/2017 12:31
== END 2017-04-26 14:44 | disposition home or self-care (01) ==
LOC: LAB 14:43 → DI 14:44
PROVIDERS: ATTEND Specialist
DX: R91.1 Solitary pulmonary nodule (principal); R91.8 Other nonspecific abnormal finding of lung field
CPT/HCPCS: 36415; 71260; 74160; 82565; 84520; Q9967

== ENCOUNTER 2017-10-23 14:46 | Outpatient (CLI) | payer MEDICARE ==
[2017-10-23 15:10] LABS: CALCIUM 9.2 mg/dL (8.5-10.3); CREATININE 0.4 mg/dL (0.4-1.0)
== END 2017-10-23 14:47 | disposition home or self-care (01) ==
LOC: LAB 14:46
PROVIDERS: ATTEND Physician Assistant
DX: Z51.81 Encounter for therapeutic drug level monitoring (principal)
CPT/HCPCS: 80048

== ENCOUNTER 2017-10-25 14:23 | Outpatient (CLI) | payer MEDICARE ==
[2017-10-25] MEDS ORDERED: IOPAMIDOL-300 100 ML VIAL ONE (14:34)
[2017-10-25] MEDS ORDERED: IOPAMIDOL-300 100 ML VIAL IVP ONE (14:56)
--- NOTE | 2017-10-25 16:40 | CT Report ---
Procedure Date: 10/25/2017 Accession Number: [id number] / [id number] Procedure: CT - Chest W/ CPT Code: FULL RESULT: EXAM: CT CHEST EXAM DATE: 10/25/2017 03:16 PM. CLINICAL HISTORY: Malignant neoplasm of lower lobe, right bronchus. COMPARISONS: CT of the chest 04/26/2017 and prior studies. TECHNIQUE: Routine helical CT imaging was performed through the chest. IV contrast: None. Reconstructions: Coronal and sagittal. In accordance with CT protocol optimization, one or more of the following dose reduction techniques were utilized for this exam: automated exposure control, adjustment of mA and/or KV based on patient size, or use of iterative reconstructive technique. FINDINGS: Lungs/Pleura: Redemonstration of the medial segment of the right lower lobe due to a mass engulfing the bronchus intermedius and involving the hilum. The hilar mass component has increased and now encases branches of the right pulmonary artery and measures at least 4 x 2.8 cm and occupies the azygoesophageal recess. Interval development of interstitial thickening and nodules in the lateral segment of the right lower lobe represents local spread of disease. The lungs demonstrate a background of emphysema. No left lung pulmonary nodules are seen. There is no pulmonary effusion or pneumothorax. There is no aggressive osseous lesion. The upper abdomen demonstrates thickening of the left adrenal gland, similar to prior. IMPRESSION: Interval progression of disease involving the right hilum and encasing the right pulmonary arterial branches. [facility]
== END 2017-10-25 14:24 | disposition home or self-care (01) ==
LOC: LAB 14:23
PROVIDERS: ATTEND Physician Assistant
DX: C34.31 Malignant neoplasm of lower lobe, right bronchus or lung (principal); Z51.81 Encounter for therapeutic drug level monitoring
CPT/HCPCS: 71260; Q9967

== ENCOUNTER 2017-12-15 15:40 | Outpatient (CLI) | payer MEDICARE ==
[2017-12-15 19:47] LABS: CALCIUM 9.5 mg/dL (8.5-10.3); CREATININE 0.4 mg/dL (0.4-1.0)
== END 2017-12-15 15:41 | disposition home or self-care (01) ==
LOC: LAB.WCP 15:40
PROVIDERS: ATTEND Physician Assistant
DX: Z79.899 Other long term (current) drug therapy (principal)
CPT/HCPCS: 36415; 80048

== ENCOUNTER 2018-01-25 16:56 | Outpatient (CLI) | payer MEDICARE ==
--- NOTE | 2018-01-25 17:09 | CONSULTATION NOTE ---
Palliative Care Consultation - Referral Referring Provider: Clarisa Bowen PA-C Time of Visit: [id number] Referral setting: Home (It is a taxing and considerable effort for the patient to leave the home related to dypsnea and weakness) Referral Reason: Squamous Cell CA Right lung/liver mets from colon cancer/Goals of Care - Information Sources Records reviewed: Previous records reviewed History/Review of Systems obtained from: Patient, Family (daughter Elizabeth at visit) Exam limitations: No limitations - History of Present Illness Brief History of Present Illness: This is a feisty 72-year-old [place] woman, who presents with 2 primary cancers. 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 Was having increased shortness of breath, had been hospitalized with pneumonia earlier in the year, did get the CT scan in October, that did show recurrent disease. She was also diagnosed in May 2016 with a right colon cancer, she did have a right hemicolectomy. When she was having her PET/CT scan for the workup of the progression of the right lower lung mass, it also showed multiple liver metastases and possible renal metastases. Unfortunately the liver metastases biopsy showed metastatic colon cancer. In discussion with patient, she was lighted information treatment would be palliative in nature only, she had been hoping there was going to be treatment in the context of immunotherapy, and was looking at getting a second opinion. In the meantime patient is continued decline fairly significantly, with decreased functional status, increased symptom burden, and presents today with symptoms of community- acquired pneumonia. Patient's daughter is a natural path, they have had IV infusions of vitamin C and other supplements, originally with some improvement, but has continued to deteriorate. Palliative care referral for pain and symptom management, and review and discussion regarding goals of care and what is most important to her, she recognizes that this point she is quite frail, would not be a candidate for any kind of treatment, and wants to focus on quality of life. Daughter Elizabeth has had experience with hospice as her father, who is from anger, is on hospice. After much discussion, agreement was to treat her pneumonia, and transition her to hospice team for focus on quality of life recognizing quantity of life is limited. Medical/Surgical History - Past Medical History Cardiovascular: reports: Atrial fibrillation Respiratory: reports: Asthma, COPD, Shortness of breath, Other (squamous cell lung cancer dx 10/2015; recurrence 10/25/[address]) Neuro: reports: Headache/migraine Endocrine/Autoimmune: reports: None GI: reports: Diverticulitis, Other (right sided colon cancer 05/2016) : reports: None Psych: reports: Depression, Anxiety, Claustrophobia Musculoskeletal: reports: Osteoarthritis, Osteoporosis Derm: reports: None MRSA Hx?: No - Past Surgical History General: reports: Cholecystectomy, Colonoscopy, Other (colectomy) /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: reports: section HEENT: reports: Cataracts Derm: reports: Skin cancer surgery Other past surgical history: liver biopsy - Substance History Use: Uses substance without health or social issues: Tobacco (hx of smoking) Social History - Living Situation Living arrangement: At home Living Situation: With family (daughter Elizabeth living with patient, had come up from [facility] in [place]; patient for 28 years; brought up to [place] to ease daughter's burden, he is on hospice;) Support System: has another daughter Jailene in [place]; difficult relationship as has mental health problems; 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 Family History - Family History Family History: Mother: (dad at age 64), COPD/Emphysema (mother of asthma 88), Father: , Renal Disease/Failure, Sister: , Cancer (sister recently 2 years ago of colon cancer), Brother: , [place] (age 50) Medications/Allergies - Medications Home Medications: Ambulatory Orders Medication Instructions Recorded Confirmed Albuterol [Ventolin Hfa] 2 puffs INH Q4H PRN 12/24/15 01/25/18 dilTIAZem HCl [Diltiazem 24Hr ER] 120 mg PO DAILY #30 cap.er.24h 01/23/16 01/25/18 Furosemide [Lasix] 20 mg PO DAILY PRN 12/21/17 01/25/18 Ipratropium/Albuterol [Duoneb] 1 neb INH Q6HR PRN 01/25/18 01/25/18 Ondansetron [Zuplenz] 4 mg SL Q4HR PRN 01/25/18 01/25/18 Sertraline [Zoloft] 50 mg PO DAILY 01/25/18 01/25/18 levoFLOXacin [Levaquin] 250 mg PO DAILY 01/25/18 01/25/18 predniSONE [Prednisone] 40 mg PO DAILY MDD 5 days 01/25/18 01/25/18 - Allergies Allergies/Adverse Reactions: Allergies Allergy/AdvReac Type Severity Reaction Status Date / Time albuterol sulfate * Allergy Severe Respiratory Verified 05/22/16 10:08 [From ProAir HFA] iodine Allergy Severe Respiratory Verified 05/22/16 10:08 Penicillins Allergy Intermediate Nausea Verified 05/22/16 10:08 latex AdvReac Severe Rash Verified 05/22/16 10:09 morphine AdvReac Severe Headache Verified 05/22/16 10:08 Review of Systems - Constitutional Constitutional: reports: Fatigue, Weakness, Poor appetite, Night sweats, Weight loss (90.3; baseline 130; 01/11 97). denies: Fever - Eyes Eyes: reports: Vision loss, Corrective lenses - Ears, Nose & Throat Ears, Nose & Throat: reports: Other (sinus problems) - Cardiovascular Cardiovascular: reports: Irregular heart rate, Edema, Exertional dyspnea, Decr. exercise tolerance, Orthopnea - Respiratory Respiratory: reports: Sputum production (clear phelgm;), Wheezing (using duoneb 2-3 times a day; worsening "asthma"), SOB at rest, SOB with exertion, Other (hx of pneumonia) - Gastrointestinal Gastrointestinal: reports: Nausea, Vomiting (at visit; given zofran), Reflux/heartburn (worsening;), Poor appetite, Early satiety. denies: Constipation - Genitourinary Genitourinary: denies: Incontinence - Musculoskeletal Musculoskeletal: reports: Muscle weakness - Integumentary Integumentary: reports: Dryness - Neurological Neurological: reports: General weakness - Psychiatric Psychiatric: reports: Depression, Anxiety - Hematologic/Lymphatic Hematologic/Lymphatic: reports: Anemia (HCT 26; hgb 8.3), Recurrent infections (hx of pneumonia) - All Other Systems All Other Systems: reports: Reviewed and negative Physical Exam - Vital Signs Temperature: 97.7 C Pulse Rate: 98 Respiratory Rate: 22 O2 Saturation: 94 Blood Pressure: 118/64 - Physical Exam General Appearance: positive: Moderate distress, Anxious Eyes Bilateral: positive: Normal inspection ENT: positive: Dry mucous membranes Neck: positive: No JVD, Trachea midline Cardiovascular: positive: Irregularly irregular Respiratory: positive: Diminished throughout, Wheezes Abdomen: positive: Nml bowel sounds, Other (concave) Skin: positive: Pallor, Dryness Extremities: positive: Pedal edema (LE edema right greater than left; pitting; stopped lasix as not helping and poor intake) Neurologic/Psychiatric: positive: Oriented x3, Mood/affect nml, Weakness Palliative Care - POLST Patient has POLST: Yes POLST Status: DNR, Comfort Measures (completed POLST at visit) Pain: No pain Tiredness/Fatigue: Severe (7-10) Drowsiness/Sedation: Severe (7-10) Nausea: Severe (7-10) Depression: Severe (7-10) Anxiety: Severe (7-10) Dyspnea: Severe (7-10) Anorexia: Severe (7-10), Weight loss Sleep: Variable sleep pattern Constipation: No Feelings of wellbeing/Perceived Quality of Life: Poor, Worsening Performance Status: Did not have patient get up and ambulate, reports can ambulate to the bathroom the spends most the time on the couch. She is quite weak and shaky, does a little bit of meal prep, denies need for hospital bed. I would put her at a PPS though it 50% - Palliative Care Discussion: Patient lives in a vee home, has 2 dogs in the home. Reports she had been back to [place] when she was in remission, is able to see family and travel for 6 weeks. She feels like she is lived a good life, she is worried about her daughter Elizabeth, and wanting to make this is easy as possible on both of them. Elizabeth does have durable power of medical finance attorney, she is aware that this will need to be available for hospice admit. Patient does have a HERLINDA as T, that was unsigned, we did we do the pulsed after our discussion regarding goals of care with the focus on being comfortable, spending time with family, and end of life a comfortable respectful . Patient is quite the "process planner" she has a notebook, his prepaid for her cremation, and has put all her plans regarding end of life together for her daughter. She is quite grateful for the support Elizabeth provides, recognizing this is going to continue to be difficult for both of them, counseling provided regarding the hospice benefit and hospice team services. They were open to make this transition. Results - Lab Results Lab results reviewed: Yes Lab and Imaging Results: Patient with recent labs drawn for natural path on 01/18. Her creatinine was 0.3 A1c was 6.1 sodium 139 potassium 4.1 liver enzymes were within normal limits, BUN 10 WBCs 10.1, RBC 3.4, hemoglobin 8.3, hematocrit 26, and neutrophils at 9.0. Her CA-19-9 was 10 Impression and Recommendations - Palliative Care Impression: This is a feisty 72-year-old woman who presents with recurrent squamous cell CA of the right lung, and metastatic liver metastases from colon cancer. She presents today with symptoms of community-acquired pneumonia, and exacerbation of her COPD/asthma, and high anxiety. In the context of reviewing goals of care, decision was made to transition to hospice. Palliative care to provide coordination of care regarding hospice transition Recommendations/Counseling Done: 1. Community acquired pneumonia. Patient has been previously treated 2 times this last year for pneumonia, she reports her classic signs are increased shortness of breath, wheezing, and nausea and vomiting. Patient was nauseated and vomited during visit. She is having increased GERD symptoms as well. Patient does have a allergy to penicillin, consult with the hospital pharmacist regarding recommendations given patient's frail status, Levaquin 250 mg 1 tab times 7 days was ordered. 2. COPD exacerbation. Patient also was started on prednisone 40 mg daily for 5 days. Patient may benefit from ongoing steroid support, will defer this to hospice. Patient does have allergy to fillers, she unable to tolerate pro-air because of accelerated, and recently with DuoNeb was unable to tolerate whatever was mixed in there as well, she will need new medication for her nebulizer, will need to look specifically in gradients, will pass this information along for hospice to explore.Encouraged to do proactively at least 2-3 times a day. 3. GERD. Patient is complaining of increased burning and discomfort, adding to her underlying nausea. We will go ahead and start Zantac 150 mg twice daily particularly in the context of starting steroids. 4. Dyspnea. This is can be a challenge as patient is actually allergic to morphine, gets "massive headaches", and tolerates poorly. Patient has a huge component of anxiety in the context of her dyspnea, may benefit from small doses of Xanax and/or lorazepam. 5. Depression. Patient currently on sertraline 50 mg daily, her PCP had encouraged her to increase, she reports she tried it for a couple days and it did not "work". Inc. reminded her that it is 2-3 weeks before would see whether it worked or not and encouraged her to increase it given her underlying anxiety and depression. 6. Anemia. Patient is not a threshold for transfusion, daughter asking about iron transfusions. We discussed with patient currently able to not make a trip in for chest x-ray, she certainly would not be able to tolerate a trip and for iron transfusions. Reviewed possible prednisone may help with her energy level at least short-term. 7. Advanced care planning. Patient presents is fairly realistic as far as impacting her outcome currently with 2 recurrent diseases of her cancer, and defining goals of care, she wants to focus on being home, spending time with her daughter, and is pretty resigned to her pending end of life. HERLINDA ST was completed, as well as counseling regarding and transitioning to hospice team. Time Spent: 60 minutes with greater than 50% of this done in counseling regarding goals of care pain and symptom management completing the HERLINDA ST, and coordination and referral to hospice.
== END 2018-01-25 16:57 | disposition home or self-care (01) ==
LOC: PC 16:56
PROVIDERS: ATTEND Nurse Practitioner Adult Health
DX: Z51.5 Encounter for palliative care (principal); C34.91 Malignant neoplasm of unspecified part of right bronchus or lung; C18.9 Malignant neoplasm of colon, unspecified; C78.7 Secondary malignant neoplasm of liver and intrahepatic bile duct; R06.00 Dyspnea, unspecified; R53.83 Other fatigue; R53.1 Weakness; R63.4 Abnormal weight loss; R11.2 Nausea with vomiting, unspecified; K21.9 Gastro-esophageal reflux disease without esophagitis; J44.0 Chronic obstructive pulmonary disease with (acute) lower respiratory infection; J18.9 Pneumonia, unspecified organism; J44.1 Chronic obstructive pulmonary disease with (acute) exacerbation; F32.9 Major depressive disorder, single episode, unspecified; F41.9 Anxiety disorder, unspecified; D64.9 Anemia, unspecified; Z66 Do not resuscitate; Z87.01 Personal history of pneumonia (recurrent); Z79.51 Long term (current) use of inhaled steroids; Z79.52 Long term (current) use of systemic steroids; Z87.891 Personal history of nicotine dependence
CPT/HCPCS: 99344